=== PATIENT | male | born 1990 | race Caucasian/White ===

== ENCOUNTER 2021-05-05 20:31 | Emergency (ER) | payer OTHER ==
--- OUTSIDE RECORDS SUMMARY | 2021-05-05 20:44 | XMS REPORT | Clinical Summary ---
Author Author [facility] Organization [facility] Address Unknown Phone Unavailable Care Team Providers Care Network Management Specialist Name Role Phone PCP Unavailable Allergies Not on File Medications Not on file Active Problems Not on file Social History Date Tobacco Use Types Packs/Day Years Used Never Assessed Sex Assigned at Date Recorded Not on file Last Filed Vital Signs Not on file Plan of Treatment Not on file Results Not on filefrom Last 3 Months
--- NOTE | 2021-05-05 21:23 | ED Upper Extremity ---
General Chief Complaint: Laceration Stated Complaint: RIGHT HAND INDEX FINGER LAC Source: patient Exam Limitations: no limitations (RENATA GUARDADO APRN) History of Present Illness Date Seen by Provider: May 05, 2021 Time Seen by Provider: 21:20 Initial Comments To ER with a laceration from a sharp knife just prior to arrival to the palmar and radial side of the proximal phalanx right pointer finger. Tetanus is up-to-date. Onset: this evening Severity: moderate Pain/Injury Location: right 2nd finger Modifying Factors: Worse With Movement (RENATA GUARDADO APRN) Allergies and Home Medications Patient Home Medication List Home Medication List Reviewed: Yes (RENATA GUARDADO APRN) Review of Systems Constitutional: see HPI EENTM: see HPI Respiratory: no symptoms reported Cardiovascular: no symptoms reported Genitourinary: no symptoms reported Musculoskeletal: no symptoms reported Skin: no symptoms reported Psychiatric/Neurological: No Symptoms Reported (RENATA GUARDADO APRN) Physical Exam Vital Signs Vital Signs - First Documented 05/05/21 21:00 Temp 37.0 Pulse 67 Resp 16 B/P (MAP) 122/68 (86) Pulse Ox 100 O2 Delivery Room Air (DAVIS BRENNAN MD) Vital Signs Capillary Refill : (RENATA GUARDADO APRN) Height, Weight, BMI Height: '" Weight: lbs. oz. kg; BMI Method: General Appearance: WD/WN, no apparent distress HEENT: PERRL/EOMI, normal ENT inspection Neck: non-tender, full range of motion Respiratory: no respiratory distress, no accessory muscle use Gastrointestinal: normal bowel sounds, non tender Elbow/Forearm: normal inspection, non-tender Wrist: Yes normal inspection, Yes non-tender Hand: Right, laceration (1.5 cm laceration to the palmar/radial side of the right pointer finger. This is his trigger finger but he retains flexion ability of the finger and normal sensation at the pad of the fingertip. This was anesthetized locally with 2 mL of 1% lidocaine without epinephrine. Irrigated with plain sterile saline. Closed with 5 simple interrupted sutures size 5-0 Prolene. Covered with a Band-Aid.) Neurologic/Psychiatric: alert, normal mood/affect, oriented x 3 Skin: normal color, warm/dry (RENATA GUARDADO APRN) Progress/Results/Core Measures Results/Orders Vital Signs/I&O 1/9/22 1/9/22 21:00 21:28 Temp 37.0 37.0 Pulse 67 67 Resp 16 16 B/P (MAP) 122/68 (86) 122/68 Pulse Ox 100 100 O2 Delivery Room Air Room Air (DAVIS BRENNAN MD) Departure Impression Primary Impression: Finger laceration Disposition: 01 HOME, SELF-CARE Condition: Stable Departure-Patient Inst. Decision time for Depature: 21:22 (RENATA GUARDADO APRN) Referrals: NO,LOCAL PHYSICIAN (PCP/Family) Primary Care Physician Patient Instructions: Laceration Repair With Stitches ED Add. Discharge Instructions: 1. You can shower letting water run over starting tomorrow. Gently pat it dry. Do not soak it in water until the stitches come out. Remove the stitches in about 7 to 10 days. If you develop any sign of infection such as redness swelling or puslike drainage this should be reevaluated. Keep it covered with a Band-Aid to keep it from rubbing on gloves. All discharge instructions reviewed with patient and/or family. Voiced understanding. ATTENDING PHYSICIAN NOTE: I was physically present as attending physician in the emergency department during the care of this patient, but I was not directly involved in the decision making or delivery of care for this patient. (DAVIS BRENNAN MD) RENATA GUARDADO APRN May 05, 2021 21:23 DAVIS BRENNAN MD May 05, 2021 22:16
[2021-05-05 21:28] VITALS: BP 122/68
== END 2021-05-05 21:28 | disposition home or self-care (01) ==
LOC: ER 20:40
DX: S61.210A Laceration without foreign body of right index finger without damage to nail, initial encounter (principal); W26.0XXA Contact with knife, initial encounter
CPT/HCPCS: 99282